=== PATIENT | male | born 1945 | race Caucasian/White ===

== ENCOUNTER 2017-06-02 21:43 | Inpatient (IN) | payer MEDICARE, MEDICAID ==
[~2017-06-02] VITALS: Ht 180.3 cm; Wt 68.5 kg
[2017-06-02 23:00] VITALS: BP 122/82
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
[2017-06-03] MEDS ORDERED: CITA10TA17 PO (01:26)
[2017-06-03] MEDS ORDERED: MELA5TAB PO (01:26)
[2017-06-03] MEDS ORDERED: DONE10TA44 PO (01:26)
[2017-06-03] MEDS ORDERED: ACET-868 PO (01:26)
[2017-06-03] MEDS ORDERED: QUET25TA PO (01:26)
[2017-06-03] MEDS ORDERED: POLY17PO4 PO (01:26)
[2017-06-03 02:22] VITALS: BP 122/82
[2017-06-03] MEDS ORDERED: MAGNESIUM HYDROXIDE 30 ML UDC PO PRN (02:30)
[2017-06-03] MEDS ORDERED: ACETAMINOPHEN 325 MG TABLET PO PRN (02:30)
[2017-06-03] MEDS ORDERED: MAG HYDROX/AL HYDROX/SIMETH 30 ML UDC PO PRN (02:30)
[2017-06-03] MEDS ORDERED: ACETAMINOPHEN 325 MG TABLET PO SCH (06:00)
[2017-06-03 07:43] LABS: BASOPHILS % (AUTO) 0.7 % (0.0-2.0); EOSINOPHILS # (AUTO) 0.1 /CMM (0.0-0.7); EOSINOPHILS % (AUTO) 1.8 % (0.0-6.0); HEMATOCRIT 39 % (39-51); HEMOGLOBIN 13.2 g/dL (13.5-17.5); LYMPHOCYTES # (AUTO) 0.8 /CMM (0.8-4.8); LYMPHOCYTES % (AUTO) 16.5 % (20.0-44.0); MEAN CORPUSCULAR HEMOGLOBIN 32 PG (26.0-33.0); MEAN CORPUSCULAR HGB CONC 34 g/dl (31.0-36.0); MEAN CORPUSCULAR VOLUME 94 fL (80-96); MONOCYTES # (AUTO) 0.6 /CMM (0.1-1.30); MONOCYTES % (AUTO) 12.8 % (2.0-12.0); NEUTROPHILS # (AUTO) 3.3 /CMM (1.8-8.9); NEUTROPHILS % (AUTO) 68.2 % (43.0-81.0); PLATELET COUNT (AUTO) 144 /CMM (150-450); RDW COEFFICIENT OF VARIATION 11.9 (11.5-15.0); RED BLOOD CELL COUNT(AUTO) 4.12 MIL/uL (4.5-6.0); WHITE BLOOD COUNT (AUTO) 4.8 K/uL (4.3-11.0)
[2017-06-03 07:44] LABS: CALCIUM, SERUM 9.2 mg/dL (8.5-10.1); GLUCOSE 92 mg/dL (74-106); MAGNESIUM 2.2 mg/dL (1.8-2.4); PHOSPHORUS 3.2 mg/dL (2.5-4.9); UREA NITROGEN, BLOOD 19 mg/dL (7-18)
[2017-06-03 07:56] LABS: CARBON DIOXIDE 28 mmol/L (21-32); CHLORIDE 104 mmol/L (98-107); POTASSIUM 4.1 mmol/L (3.5-5.1); SODIUM SERUM 140 mmol/L (136-145)
[2017-06-03 08:00] VITALS: BP 123/76
[2017-06-03] MEDS ORDERED: CITALOPRAM HYDROBROMIDE 10 MG TABLET PO SCH (09:00)
[2017-06-03] MEDS: LORAZEPAM 0.5 MG TABLET PO PRN (12:35)
[2017-06-03] MEDS: DIVALPROEX SODIUM 125 MG CAP.SPRINK PO SCH ×2 (13:27→21:52)
[2017-06-03 15:58] VITALS: BP 127/76
[2017-06-03] MEDS ORDERED: QUETIAPINE FUMARATE 25 MG TABLET PO SCH (18:00)
--- NOTE | 2017-06-03 19:21 | NUR ---
GPS/RN PT WAS RESISTIVE TO CARE AND AGRESSIVE TO STUFF. UNABLE TO COLLECT URINE SPECIMEN TODAY
[2017-06-03 21:06] VITALS: BP 116/71
[2017-06-03] MEDS: DONEPEZIL 5 MG TABLET PO SCH (21:52)
[2017-06-03] MEDS ORDERED: QUETIAPINE FUMARATE 25 MG TABLET ONE (21:52)
[2017-06-03] MEDS: QUETIAPINE FUMARATE 25 MG TABLET PO SCH (21:57)
--- NOTE | 2017-06-03 22:00 | NUR ---
GPS RN NOTE, PATIENT HAS SEROQUEL 50 MG PO HS BUT OMNICELL IS OUT OF STOCK. INFORMED VULCANIZING MACHINE OPERATOR LAUREANO SINGH BUT WAS TOLD THAT THE NIGHT LOCKER IS OUT OF STOCK FOR SEROQUEL WELL. VULCANIZING MACHINE OPERATOR LAUREANO SINGH TOLD ME TO CALL Nathalia BAPTISTE FROM [facility] TO SEE IF SHE HAS SEROQUEL. CALLED Nathalia BAPTISTE FROM [facility] SHE SAID SHE HAS THE MEDICATION IN HER OMNICELL AND SAID THAT SINCE I AM CHARGE FOR GPS THAT I SHOULD BE THE ONE TO TAKE IT OUT FROM [facility]'S OMNICELL. TOOK SEROQUEL 50 MG OUT FROM [facility] OMNICELL AND GAVE IT TO NUNU COSTA RN FLOOR NURSE TO GIVE TO PATIENT ORDERED. WILL CONTINUE TO MONITOR THIS PATIENT.
--- NOTE | 2017-06-04 04:41 | NUR ---
GPS RN NOTES PT. REFUSED TO PROVIDE URINE SPECIMEN, UNABLE TO COLLECT URINE SPECIMEN PT. WAS UNCOOPERATIVE
--- NOTE | 2017-06-04 04:44 | NUR ---
GPS RN NOTES PT. REFUSED SKIN ASSESSMENT ,REFUSED TO TAKEN PICTURE , ENCOURAGED FOR SKIN ASSESSMENT STILL REFUSED , PT BEHAVIOR WAS AGGRESSIVE AND UNCOOPERTIVE .
--- NOTE | 2017-06-04 06:24 | NUR ---
GPS/RN NOTES PT BECOME AGRESSIVE FOLLOWING DIAPER CHANGE/SACRAL BUTTOCKS AREA REDNESS NOTED PICTURE TAKEN AND PLACED IN CHART .
[2017-06-04 08:00] VITALS: BP 117/69
[2017-06-04 08:51] LABS: BASOPHILS % (AUTO) 0.8 % (0.0-2.0); EOSINOPHILS # (AUTO) 0.1 /CMM (0.0-0.7); HEMATOCRIT 42 % (39-51); LYMPHOCYTES % (AUTO) 25.9 % (20.0-44.0); MEAN CORPUSCULAR HEMOGLOBIN 32 PG (26.0-33.0); MEAN CORPUSCULAR HGB CONC 34 g/dl (31.0-36.0); MEAN CORPUSCULAR VOLUME 95 fL (80-96); MONOCYTES # (AUTO) 0.5 /CMM (0.1-1.30); MONOCYTES % (AUTO) 13.6 % (2.0-12.0); NEUTROPHILS # (AUTO) 2.1 /CMM (1.8-8.9); NEUTROPHILS % (AUTO) 57.7 % (43.0-81.0); PLATELET COUNT (AUTO) 139 /CMM (150-450); RDW COEFFICIENT OF VARIATION 12.1 (11.5-15.0); RED BLOOD CELL COUNT(AUTO) 4.39 MIL/uL (4.5-6.0); WHITE BLOOD COUNT (AUTO) 3.7 K/uL (4.3-11.0)
[2017-06-04] MEDS: DIVALPROEX SODIUM 125 MG CAP.SPRINK PO SCH ×2 (09:08→21:01)
[2017-06-04] MEDS: Z GUARD REMEDY 2 OZ OINT TP SCH (09:19)
[2017-06-04 09:22] LABS: CHOLESTEROL 163 mg/dL (<200); HDL CHOLESTEROL 80 mg/dL (40-60); LDL 80 mg/dL (0-99); TRIGLYCERIDES 61 mg/dL (30-150)
[2017-06-04 12:06] LABS: ALANINE AMINOTRANSFERASE 29 U/L (12-78); ALBUMIN 4.3 g/dL (3.4-5.0); ALKALINE PHOSPHATASE 64 U/L (46-116); ASPARTATE AMINOTRANSFERASE 24 U/L (15-37); BILIRUBIN,TOTAL 1.2 mg/dL (0.2-1.0); CALCIUM, SERUM 9.3 mg/dL (8.5-10.1); CARBON DIOXIDE 26 mmol/L (21-32); CHLORIDE 104 mmol/L (98-107); CREATININE 1.1 mg/dL (0.6-1.3); GLUCOSE 173 mg/dL (74-106); POTASSIUM 4.4 mmol/L (3.5-5.1); SODIUM SERUM 143 mmol/L (136-145); TOTAL PROTEIN, SERUM 7.8 g/dL (6.4-8.2); UREA NITROGEN, BLOOD 24 mg/dL (7-18)
[2017-06-04 15:57] VITALS: BP 128/74
[2017-06-04 19:57] VITALS: BP 115/82
[2017-06-04] MEDS: DONEPEZIL 5 MG TABLET PO SCH (21:01)
[2017-06-04] MEDS: QUETIAPINE FUMARATE 25 MG TABLET PO SCH (21:02)
[2017-06-05 08:00] VITALS: BP 124/81
[2017-06-05 08:50] LABS: ALANINE AMINOTRANSFERASE 28 U/L (12-78); ALBUMIN 4.2 g/dL (3.4-5.0); ALKALINE PHOSPHATASE 66 U/L (46-116); ASPARTATE AMINOTRANSFERASE 26 U/L (15-37); BILIRUBIN,DIRECT 0.2 mg/dL (0.0-0.2); BILIRUBIN,TOTAL 1.2 mg/dL (0.2-1.0); CALCIUM, SERUM 9.7 mg/dL (8.5-10.1); CARBON DIOXIDE 30 mmol/L (21-32); CHLORIDE 107 mmol/L (98-107); CREATININE 1.1 mg/dL (0.6-1.3); GLUCOSE 101 mg/dL (74-106); POTASSIUM 5.4 mmol/L (3.5-5.1); SODIUM SERUM 144 mmol/L (136-145); TOTAL PROTEIN, SERUM 7.8 g/dL (6.4-8.2); UREA NITROGEN, BLOOD 27 mg/dL (7-18)
[2017-06-05] MEDS: DIVALPROEX SODIUM 125 MG CAP.SPRINK PO SCH ×2 (09:00→21:22)
[2017-06-05] MEDS: Z GUARD REMEDY 2 OZ OINT TP SCH (09:00)
[2017-06-05 15:39] VITALS: BP 139/81
--- NOTE | 2017-06-05 16:20 | NUR ---
Initial Discharge Plan: Pt is conserved to [address] [facility] [id number]; . Per conservator reports , pts previous placement was at [facility] in [place] (prior to coming to [facility]).SW contacted pts corinaator, Jose however he was unavailable. SW left a detailed message asking for a callback. SW also contacted [facility] at and was not able to speak to anyone; a detailed message was left. JUSTUS will follow up, in order to speak to Jose Paige (Conservator) to ensure pt is properly and safely discharged.
--- NOTE | 2017-06-05 17:00 | NUR ---
GPS/RN ULTRA SOUND OF ABDOMEN AND NPO STATUS CANCELLED PER DR GLORIA.
[2017-06-05 20:38] VITALS: BP 136/76
[2017-06-05] MEDS: DONEPEZIL 5 MG TABLET PO SCH (21:20)
[2017-06-05] MEDS: QUETIAPINE FUMARATE 25 MG TABLET PO SCH (21:21)
[2017-06-06] MEDS: DIVALPROEX SODIUM 125 MG CAP.SPRINK PO SCH ×3 (08:49→16:09)
[2017-06-06 09:33] VITALS: BP 123/61
[2017-06-06] MEDS: Z GUARD REMEDY 2 OZ OINT TP SCH (13:21)
[2017-06-06 16:31] VITALS: BP 112/68
[2017-06-06 20:12] VITALS: BP 115/70
[2017-06-06] MEDS: DONEPEZIL 5 MG TABLET PO SCH (21:26)
[2017-06-06] MEDS: QUETIAPINE FUMARATE 25 MG TABLET PO SCH (21:27)
[2017-06-06] MEDS: ZOLPIDEM TARTRATE 5 MG TABLET PO PRN (21:27)
[2017-06-07 07:55] LABS: BASOPHILS % (AUTO) 0.1 % (0.0-2.0); EOSINOPHILS # (AUTO) 0.1 /CMM (0.0-0.7); EOSINOPHILS % (AUTO) 1.2 % (0.0-6.0); HEMATOCRIT 38 % (39-51); LYMPHOCYTES % (AUTO) 23.2 % (20.0-44.0); MEAN CORPUSCULAR HEMOGLOBIN 32 PG (26.0-33.0); MEAN CORPUSCULAR HGB CONC 34 g/dl (31.0-36.0); MEAN CORPUSCULAR VOLUME 95 fL (80-96); MONOCYTES # (AUTO) 0.7 /CMM (0.1-1.30); MONOCYTES % (AUTO) 15.7 % (2.0-12.0); NEUTROPHILS # (AUTO) 2.7 /CMM (1.8-8.9); NEUTROPHILS % (AUTO) 59.8 % (43.0-81.0); PLATELET COUNT (AUTO) 119 /CMM (150-450); RDW COEFFICIENT OF VARIATION 11.8 (11.5-15.0); RED BLOOD CELL COUNT(AUTO) 4.04 MIL/uL (4.5-6.0); WHITE BLOOD COUNT (AUTO) 4.5 K/uL (4.3-11.0)
[2017-06-07 08:00] VITALS: BP 112/66
[2017-06-07 08:54] LABS: CALCIUM, SERUM 8.9 mg/dL (8.5-10.1); CARBON DIOXIDE 28 mmol/L (21-32); CHLORIDE 103 mmol/L (98-107); CREATININE 0.9 mg/dL (0.6-1.3); GLUCOSE 83 mg/dL (74-106); POTASSIUM 3.9 mmol/L (3.5-5.1); SODIUM SERUM 140 mmol/L (136-145); UREA NITROGEN, BLOOD 23 mg/dL (7-18)
[2017-06-07] MEDS: DIVALPROEX SODIUM 125 MG CAP.SPRINK PO SCH ×4 (09:17→21:20)
[2017-06-07] MEDS: Z GUARD REMEDY 2 OZ OINT TP SCH (09:17)
--- NOTE | 2017-06-07 09:54 | NUR ---
Discharge Planning: JUSTUS contacted Jose Paige, , pts Conservator for discharge planning purposes. JUSTUS was unable to speak to Mr. Paige however a detailed message was left asking for a callback. JUSTUS also contacted , Officer of the Day and left a detailed message requesting a call back. JUSTUS will continue to follow up to ensure pt is properly discharged.
--- NOTE | 2017-06-07 10:11 | NUR ---
Discharge Planning: JUSTUS contacted [facility] at in [place] for discharge planning purposes. Phone rang continuously without a voicemail option. JUSTUS was unable to leave a message. JUSTUS will follow up.
[2017-06-07 15:38] VITALS: BP 109/76
--- NOTE | 2017-06-07 19:50 | NUR ---
GPS/FREIGHT AGENT; RECEIVED PT SITTING ON THE FLACO CHAIR AWAKKE VERBALLY RESPONSIVE BUT CCONFUSED. BREATHING NON ALBORED.
[2017-06-07 20:00] VITALS: BP 116/66
[2017-06-07] MEDS: DONEPEZIL 5 MG TABLET PO SCH (22:45)
[2017-06-07] MEDS: QUETIAPINE FUMARATE 25 MG TABLET PO SCH (22:46)
[2017-06-07] MEDS: ZOLPIDEM TARTRATE 5 MG TABLET PO PRN (23:27)
--- NOTE | 2017-06-07 23:30 | NUR ---
GPS/ACCESS DIRECTOR; AMBIEN 5 MG PO HS PRN GIVEN AT 2327. WILL RE ASSESS.
--- NOTE | 2017-06-08 05:00 | NUR ---
GPS/HISTORY DEPARTMENT CHAIR; NOTED PT WITH VERY SMALL OPENING SACRAL AREA. CHARGE NURSE MADE AWARE. PHOTO TAKEN. REMEDY Z GUARD APPLIED.
[2017-06-08 08:00] VITALS: BP 121/55
[2017-06-08] MEDS: DIVALPROEX SODIUM 125 MG CAP.SPRINK PO SCH ×4 (09:49→21:25)
[2017-06-08] MEDS: Z GUARD REMEDY 2 OZ OINT TP SCH (09:50)
--- NOTE | 2017-06-08 10:06 | NUR ---
WOUND CARE CONSULT: PT PRESENTS WITH STAGE 2 ULCER TO SACRAL AREA. PT IS AMBULATORY BUT INCONTINENT. PER NURSING STAFF, PT WAS PREVIOUSLY UNCOOPERATIVE. ALL SKIN PROTECTION AND WOUND RECOMMENDATIONS DISCUSSED WITH NURSING STAFF. WILL SEE PRN. KHOURY IN AGREEMENT WITH PLAN OF CARE. CURRENT SHIMA SCORE IS 19. Addendum: 06/08/17 at 1009 by ROGELIO OVERTON WNDNU Amended: Links added.
--- NOTE | 2017-06-08 10:17 | NUR ---
Discharge Planning: JUSTUS contacted Jose Paige, , pts conservator however was unable to speak to him; a detailed message was left asking for a call back. JUSTUS also spoke to Vu , who stated he will have a banana ripening room supervisor call back to discuss pt. JUSTUS informed Mr. MackenzieVu the numerous attempts being made to reach Mr. Paige with no response. JUSTUS will follow up.
[2017-06-08] MEDS: HYDROGEL DRESSING 90 GM TUBE TP SCH (10:30)
[2017-06-08] MEDS ORDERED: HYDROGEL DRESSING 90 GM TUBE TP PRN (10:30)
--- NOTE | 2017-06-08 12:13 | NUR ---
Discharge Planning: JUSTUS received a call back from Jabier Poon, [place] Public Guardian of the [facility] [employer]. JUSTUS was informed that in the absence of pts guardian, Jose Paige Ms. Eugene can make decisions for pt. (per [facility] regulations). Ms. Eugene faxed "informed consent for use of antipsychotics for probate conservatees with dementia" to be completed by psychiatrist. Form will inform medical team on treatment protocol. JUSTUS informed ELENA Sage as well. JUSTUS will follow up.
[2017-06-08 16:53] VITALS: BP 112/82
[2017-06-08 20:00] VITALS: BP 115/73
[2017-06-08] MEDS: QUETIAPINE FUMARATE 25 MG TABLET PO SCH (21:25)
[2017-06-08] MEDS: DONEPEZIL 5 MG TABLET PO SCH (21:26)
[2017-06-08] MEDS: ZOLPIDEM TARTRATE 5 MG TABLET PO PRN (21:26)
[2017-06-09 08:00] VITALS: BP 105/56
[2017-06-09] MEDS: DIVALPROEX SODIUM 125 MG CAP.SPRINK PO SCH ×5 (08:16→21:33)
[2017-06-09 08:30] LABS: BASOPHILS % (AUTO) 0.5 % (0.0-2.0); EOSINOPHILS # (AUTO) 0.1 /CMM (0.0-0.7); EOSINOPHILS % (AUTO) 3.5 % (0.0-6.0); HEMATOCRIT 36 % (39-51); HEMOGLOBIN 12.4 g/dL (13.5-17.5); LYMPHOCYTES # (AUTO) 1.1 /CMM (0.8-4.8); LYMPHOCYTES % (AUTO) 35.5 % (20.0-44.0); MEAN CORPUSCULAR HEMOGLOBIN 33 PG (26.0-33.0); MEAN CORPUSCULAR HGB CONC 35 g/dl (31.0-36.0); MEAN CORPUSCULAR VOLUME 96 fL (80-96); MONOCYTES # (AUTO) 0.5 /CMM (0.1-1.30); MONOCYTES % (AUTO) 16.1 % (2.0-12.0); NEUTROPHILS # (AUTO) 1.3 /CMM (1.8-8.9); NEUTROPHILS % (AUTO) 44.4 % (43.0-81.0); PLATELET COUNT (AUTO) 100 /CMM (150-450); RDW COEFFICIENT OF VARIATION 12.8 (11.5-15.0); RED BLOOD CELL COUNT(AUTO) 3.73 MIL/uL (4.5-6.0)
[2017-06-09] MEDS: Z GUARD REMEDY 2 OZ OINT TP SCH (09:58)
[2017-06-09] MEDS: HYDROGEL DRESSING 90 GM TUBE TP SCH (09:58)
[2017-06-09 10:29] LABS: CALCIUM, SERUM 8.8 mg/dL (8.5-10.1); CARBON DIOXIDE 28 mmol/L (21-32); CHLORIDE 103 mmol/L (98-107); CREATININE 0.8 mg/dL (0.6-1.3); GLUCOSE 84 mg/dL (74-106); POTASSIUM 4.5 mmol/L (3.5-5.1); SODIUM SERUM 139 mmol/L (136-145); UREA NITROGEN, BLOOD 23 mg/dL (7-18)
[2017-06-09] MEDS ORDERED: OLANZAPINE 5 MG TABLET ONE (10:57)
[2017-06-09 16:00] VITALS: BP 111/74
[2017-06-09 20:00] VITALS: BP 123/65
[2017-06-09] MEDS: DONEPEZIL 5 MG TABLET PO SCH (21:33)
[2017-06-09] MEDS: QUETIAPINE FUMARATE 25 MG TABLET PO SCH (21:34)
[2017-06-09] MEDS: ZOLPIDEM TARTRATE 5 MG TABLET PO PRN (21:47)
--- NOTE | 2017-06-09 21:47 | NUR ---
AMBIEN 5 MG TAB 1 PO GIVEN FOR SLEEP. WILL CONTINUE TO MONITOR.
[2017-06-10 08:00] VITALS: BP 106/74
[2017-06-10] MEDS: DIVALPROEX SODIUM 125 MG CAP.SPRINK PO SCH ×2 (09:05→17:06)
[2017-06-10] MEDS: Z GUARD REMEDY 2 OZ OINT TP SCH (09:06)
[2017-06-10] MEDS: HYDROGEL DRESSING 90 GM TUBE TP SCH (09:06)
[2017-06-10 12:18] LABS: BASOPHILS % (AUTO) 0.2 % (0.0-2.0); EOSINOPHILS # (AUTO) 0.1 /CMM (0.0-0.7); EOSINOPHILS % (AUTO) 1.6 % (0.0-6.0); HEMATOCRIT 38 % (39-51); LYMPHOCYTES # (AUTO) 1.1 /CMM (0.8-4.8); LYMPHOCYTES % (AUTO) 21.7 % (20.0-44.0); MEAN CORPUSCULAR HEMOGLOBIN 33 PG (26.0-33.0); MEAN CORPUSCULAR HGB CONC 34 g/dl (31.0-36.0); MEAN CORPUSCULAR VOLUME 96 fL (80-96); MONOCYTES # (AUTO) 0.5 /CMM (0.1-1.30); MONOCYTES % (AUTO) 8.9 % (2.0-12.0); NEUTROPHILS # (AUTO) 3.5 /CMM (1.8-8.9); NEUTROPHILS % (AUTO) 67.6 % (43.0-81.0); PLATELET COUNT (AUTO) 132 /CMM (150-450); RDW COEFFICIENT OF VARIATION 12.7 (11.5-15.0); RED BLOOD CELL COUNT(AUTO) 3.97 MIL/uL (4.5-6.0); WHITE BLOOD COUNT (AUTO) 5.1 K/uL (4.3-11.0)
[2017-06-10 16:24] VITALS: BP 135/70
[2017-06-10 19:48] VITALS: BP 122/64
[2017-06-10] MEDS: DONEPEZIL 5 MG TABLET PO SCH (21:20)
[2017-06-10] MEDS: ZOLPIDEM TARTRATE 5 MG TABLET PO PRN (21:21)
[2017-06-10] MEDS: QUETIAPINE FUMARATE 25 MG TABLET PO SCH (21:21)
[2017-06-11] MEDS: DIVALPROEX SODIUM 125 MG CAP.SPRINK PO SCH ×2 (08:23→16:39)
[2017-06-11] MEDS: HYDROGEL DRESSING 90 GM TUBE TP SCH (08:24)
[2017-06-11] MEDS: Z GUARD REMEDY 2 OZ OINT TP SCH (08:24)
[2017-06-11 09:41] VITALS: BP 128/68
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
[2017-06-11 16:00] VITALS: BP 112/62
--- NOTE | 2017-06-11 19:30 | NUR ---
GPS RN NOTE, RECEIVED PATIENT AWAKE AND IN BED, NO S/S OR COMPLAINTS OF PAIN AT THIS TIME. PATIENT DISPLAYING NO S/S OF APPARENT DISTRESS AT THIS TIME. PATIENT BREATHING IS UNLABORED WITH EQUAL RISE AND FALL OF THE CHEST. PATIENT IS ALERT AND ORIENTED X 1 ON ROOM AIR WITH A SPO2 95 %. PATIENT IS MED COMPLIANT, CONFUSED, UNCOOPERATIVE, UNSTEADY GAIT, AND NEEDS REORIENTATION AT TIMES. PATIENT DENIES SI AND HI AT THIS TIME. PATIENT ASSISTED WITH TURNING AND REPOSITIONING Q2HR AND PRN FOR COMFORT AND CIRCULATION. PATIENT HAS NO NEEDS AT THIS TIME. PATIENT EDUCATED ON THE USE OF THE CALL HOLLOWAY. PATIENT BED SIDE RAILS UP X 2 FOR SAFETY, BED IS LOCKED AND LOW, WILL CONTINUE TO MONITOR THIS PATIENT WITH THE HELP OF STAFF.
[2017-06-11 19:45] VITALS: BP 117/79
[2017-06-11] MEDS: QUETIAPINE FUMARATE 25 MG TABLET PO SCH ×2 (21:39→21:54)
[2017-06-11] MEDS: DONEPEZIL 5 MG TABLET PO SCH ×2 (21:39→21:54)
--- NOTE | 2017-06-11 21:54 | NUR ---
GPS RN NOTE, PATIENT SPIT OUT ARICEPT 10MG AND SEROQUEL 75MG ON TO THE FLOOR. WHEN ASKED WHY HE SPIT OUT HIS MEDICATION PATIENT STATED, " THAT FUCKING DID NOT TASTE GOOD". EDUCATED THE PATIENT ON THE RISKS AND BENEFITS OF TAKING AND REFUSING AFOREMENTIONED MEDICATION. BOTH ARICEPT AND SEROQUEL WASTED IN OMICELL. WILL CONTINUE TO MONITOR THIS PATIENT.
[2017-06-11] MEDS: ZOLPIDEM TARTRATE 5 MG TABLET PO PRN (23:33)
--- NOTE | 2017-06-11 23:33 | NUR ---
GPS RN NOTE, PATIENT HAS A COMPLAINT OF NOT BEING ABLE TO SLEEP AND IS REQUESTING AMBIEN AT THIS TIME. PATIENT VITAL SIGNS ARE STABLE. GAVE AMBIEN 5MG PO HS ORDERED. WILL REASSESS FOR INSOMNIA AND I WILL CONTINUE TO MONITOR THIS PATIENT.
[2017-06-12 08:00] VITALS: BP 107/76
[2017-06-12] MEDS: HYDROGEL DRESSING 90 GM TUBE TP SCH (09:42)
[2017-06-12] MEDS: DIVALPROEX SODIUM 125 MG CAP.SPRINK PO SCH ×3 (09:42→17:19)
[2017-06-12] MEDS: Z GUARD REMEDY 2 OZ OINT TP SCH (09:43)
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
--- NOTE | 2017-06-12 15:21 | NUR ---
Discharge planning: JUSTUS faxed inquiries to the following facilities: [facility], [address] [address]; and fax # . [facility], [address] [place] [address]; and fax # . [facility], [address] [facility] [address]; and fax # . [facility], [address] [address] [facility] [address]; and fax # [place] [phone]; and fax# SW will follow up to ensure pt is properly and safely discharged.
--- NOTE | 2017-06-12 15:44 | NUR ---
Discharge Planning: SW received acceptance for pt at [facility], [address] [place] [address]; upon discharge. SW will follow up to ensure pt is properly and safely discharged.
[2017-06-12 16:26] VITALS: BP 115/78
[2017-06-12 20:20] VITALS: BP 112/73
[2017-06-12] MEDS: QUETIAPINE FUMARATE 25 MG TABLET PO SCH (21:06)
[2017-06-12] MEDS: LORAZEPAM 0.5 MG TABLET PO PRN (23:49)
[2017-06-13 08:00] VITALS: BP 127/75
[2017-06-13] MEDS: DIVALPROEX SODIUM 125 MG CAP.SPRINK PO SCH ×3 (09:43→16:19)
[2017-06-13] MEDS: Z GUARD REMEDY 2 OZ OINT TP SCH (09:44)
[2017-06-13] MEDS: HYDROGEL DRESSING 90 GM TUBE TP SCH (09:45)
--- NOTE | 2017-06-13 09:58 | NUR ---
Discharge Planning: JUSTUS contacted Jose aPige , pts conservator to provide him with an update regarding pts discharge plan (i.e. pt was accepted to [facility]). JUSTUS left a detailed message asking for a callback. In addition, JUSTUS called (officer of the day) and spoke to Zeynep who confirmed, Jose Paige, needs to be notified of the update. Zeynep informed JUSTUS that she would be e-mailing Mr. Paige with the information. JUSTUS will follow up to ensure pt is properly and safely discharged.
--- NOTE | 2017-06-13 13:44 | NUR ---
Discharge Planning: SW faxed pts Conservator/Public Guardian, Tammie Dang and fax # documentation from treating psychiatrist, Dr. Hernandez to inform pts discharge. SW Will follow up to ensure pt is properly and safely discharged.
--- NOTE | 2017-06-13 14:50 | NUR ---
Discharge Planning: SW received a call from Laurence Cho , pts Conservator/Public Guardian providing verbal consent to move forward with pts placement to [facility]. SW will follow up to arrange for discharge.
--- NOTE | 2017-06-13 15:38 | NUR ---
Discharge Planning: SW contacted pts daughter, Lili Rodriguez to inform her that Conservator, Laurence Cho had given verbal consent to move forward with pts discharge to [facility]. SW left a detailed message.
[2017-06-13 15:53] VITALS: BP 114/69
--- NOTE | 2017-06-13 19:30 | NUR ---
GPS RN NOTE, RECEIVED PATIENT AWAKE AND IN BED, NO S/S OR COMPLAINTS OF PAIN AT THIS TIME. PATIENT DISPLAYING NO S/S OF APPARENT DISTRESS AT THIS TIME. PATIENT BREATHING IS UNLABORED WITH EQUAL RISE AND FALL OF THE CHEST. PATIENT IS ALERT AND ORIENTED X 1 ON ROOM AIR WITH A SPO2 95 %. PATIENT HAS ONE TO ONE FOR HI FALL RISK. PATIENT IS MED COMPLIANT, CONFUSED, UNCOOPERATIVE, UNSTEADY GAIT, AND NEEDS REORIENTATION AT TIMES. PATIENT DENIES SI AND HI AT THIS TIME. PATIENT ASSISTED WITH TURNING AND REPOSITIONING Q2HR AND PRN FOR COMFORT AND CIRCULATION. PATIENT HAS NO NEEDS AT THIS TIME. PATIENT EDUCATED ON THE USE OF THE CALL HOLLOWAY. PATIENT BED SIDE RAILS UP X 2 FOR SAFETY, BED IS LOCKED AND LOW, WILL CONTINUE TO MONITOR THIS PATIENT WITH THE HELP OF STAFF.
[2017-06-13 20:14] VITALS: BP 108/66
[2017-06-13] MEDS: QUETIAPINE FUMARATE 25 MG TABLET PO SCH (22:09)
[2017-06-14] MEDS: LORAZEPAM 0.5 MG TABLET PO PRN (02:06)
--- NOTE | 2017-06-14 02:06 | NUR ---
GPS RN NOTE, PATIENT HAS A COMPLAINT OF FEELING ANXIOUS AND IS REQUESTING ATIVAN AT THIS TIME. PATIENT VITAL SIGNS ARE STABLE. GAVE ATIVAN 1MG PO Q8HR PRN ORDERED. WILL REASSESS FOR ANXIETY AND I WILL CONTINUE TO MONITOR THIS PATIENT.
[2017-06-14 08:00] VITALS: BP_SYST 122; BP_SYST 148; BP_DIAS 70; BP_DIAS 86
[2017-06-14] MEDS: DIVALPROEX SODIUM 125 MG CAP.SPRINK PO SCH ×2 (09:38→12:26)
[2017-06-14] MEDS: HYDROGEL DRESSING 90 GM TUBE TP SCH (09:39)
[2017-06-14] MEDS: Z GUARD REMEDY 2 OZ OINT TP SCH (09:40)
--- NOTE | 2017-06-14 10:30 | NUR ---
DR. NUNEZ GAVE AN ORDER TO D/C HOLD AND D/C TO [facility] AND TO CONTINUE SAME MEDS INCLUDING PRN AND TO FOLLOW UP WITH PSYCH AND MEDICAL DOCTORS.
--- NOTE | 2017-06-14 13:25 | NUR ---
GPS/RN-NOTES PATIENT WAS DISCHARGE TO [facility] TODAY. DR. NUNEZ AND CONTACT CENTER AGENT PAULINE MADE AWARE AND AGREES OF PATIENT DISCHARGE. REPORT WAS GIVEN TO LIZZ ( HAND CULTIVATOR). PATIENT DID N OT VERNALIZE SI/HI,DENIES VISUAL AUDITORY HALLUCINATIONS AT THE TIME OF DISCHARGE. PATIENT LEFT THE UNIT IN STABLE CONDITION AND WAS CLINICAL ORTHOPTIST BY AMBULANCE VIA GURNEY WITH TWO STAFF ASSIST . PATIENT X1 YELLOW RING WAS ENDORSE AND GIVEN TO THE AMBULANCE STAFF. PER NOTES, DAUGHTER TAM BAIG ) MADE HER AWARE AND THAT CONSERVATOR ROBBY GÓMEZ HAD GIVEN CONSENT OF PATIENT'S DISCHARGE.
== END 2017-06-14 13:25 | DRG 885 ==
LOC: ER 21:45 → GPS 22:51
PROVIDERS: ADMIT Psychiatry & Neurology Psychiatry; ATTEND Psychiatry & Neurology Psychiatry
DX: F29 Unspecified psychosis not due to a substance or known physiological condition (principal); N17.9 Acute kidney failure, unspecified; L89.152 Pressure ulcer of sacral region, stage 2; D69.6 Thrombocytopenia, unspecified; E87.5 Hyperkalemia; F03.91 Unspecified dementia, unspecified severity, with behavioral disturbance; F32.9 Major depressive disorder, single episode, unspecified; Z79.899 Other long term (current) drug therapy
CPT/HCPCS: 36415; 80048-TC; 80053-TC; 80061-TC; 80076-TC; 80164-TC; 82962-TC; 83735-TC; 84100-TC; 85025-TC; A6248; A6402